=== PATIENT | male | born 1995 | race African-American/Black ===

== ENCOUNTER 2020-02-20 21:53 | Emergency (ER) | payer OTHER ==
[~2020-02-20] VITALS: Ht 160 cm; Wt 72.6 kg
[2020-02-20] MEDS ORDERED: NOHOMEMEDICATIONS (22:04)
[2020-02-20] MEDS ORDERED: PENICILLIN V P500 MG PO (23:34)
[2020-02-20] MEDS ORDERED: ULTRAM 50MG TAB50 MG PO (23:34)
[2020-02-20 23:53] VITALS: BP 109/85
== END 2020-02-20 23:54 | disposition home or self-care (01) ==
LOC: ER 21:53
DX: K04.7 Periapical abscess without sinus (principal); F17.210 Nicotine dependence, cigarettes, uncomplicated

== ENCOUNTER 2020-03-24 12:46 | Emergency (ER) | payer OTHER ==
[~2020-03-24] VITALS: Ht 162.6 cm; Wt 72.6 kg
[~2020-03-24 12:46] MED LIST: NOHOMEMEDICATIONS; PENICILLIN V P500 MG PO; ULTRAM 50MG TAB50 MG PO
[2020-03-24 12:49] VITALS: BP 118/69
[2020-03-24] MEDS ORDERED: PENICILLIN VK500 MG PO (13:17)
== END 2020-03-24 13:28 | disposition home or self-care (01) ==
LOC: ER 12:46
DX: S02.5XXA Fracture of tooth (traumatic), initial encounter for closed fracture (principal); F17.210 Nicotine dependence, cigarettes, uncomplicated; Z79.2 Long term (current) use of antibiotics; X58.XXXA Exposure to other specified factors, initial encounter; Y93.89 Activity, other specified; Y92.89 Other specified places as the place of occurrence of the external cause; Y99.8 Other external cause status